=== PATIENT | male | born 1970 | race Caucasian/White ===

== ENCOUNTER 2020-01-17 21:54 | Emergency (ER) | payer OTHER ==
--- NOTE | 2020-01-17 22:38 | EDM.PDOC ---
ED HPI GENERAL MEDICAL PROBLEM - General Stated Complaint: PAINFUL URINATION Time Seen by Provider: 01/17/20 22:20 Source of Information: Reports: Patient History Limitations: Reports: No Limitations - History of Present Illness INITIAL COMMENTS - FREE TEXT/NARRATIVE: Patient presented to the ED because of inability to void and some dysuria. There is no flank pain.N/V or fever and chills. Lower Abdomen Pain Score (Numeric/FACES): 5 - Related Data Allergies Allergy/AdvReac Type Severity Reaction Status Date / Time No Known Allergies Allergy Verified 01/17/20 22:01 Home Meds: Home Meds Hydrochlorothiazide/Lisinopril [Lisinopril/HCTZ 20-12.5 MG] 20 mg PO DAILY 01/17/20 [History] Sulfamethoxazole/Trimethoprim [Bactrim Ds Tablet] 1 each PO BID #15 tablet 01/17/20 [Rx] Tamsulosin [Flomax] 0.4 mg PO DAILY 01/17/20 [History] metFORMIN [Glucophage] 500 mg PO DAILY 01/17/20 [History] tadalafiL [Tadalafil] 5 mg PO DAILY 01/17/20 [History] ED ROS GENERAL - Review of Systems Review Of Systems: See Below Constitutional: Reports: No Symptoms HEENT: Reports: No Symptoms Respiratory: Reports: No Symptoms Cardiovascular: Reports: No Symptoms Endocrine: Reports: High Glucose GI/Abdominal: Reports: No Symptoms : Reports: Dysuria, Urinary Retention. Denies: Flank Pain Musculoskeletal: Reports: No Symptoms Skin: Reports: No Symptoms Neurological: Reports: No Symptoms ED EXAM, RENAL/ - Physical Exam Exam: See Below Exam Limited By: No Limitations General Appearance: Alert, No Apparent Distress Ears: Normal External Exam, Normal Canal Nose: Normal Inspection, Normal Mucosa Throat/Mouth: Normal Inspection, Normal Lips, Normal Teeth Neck: Normal Inspection, Supple, Non-Tender Respiratory/Chest: No Respiratory Distress, Lungs Clear, Normal Breath Sounds Cardiovascular: Normal Peripheral Pulses, Regular Rate, Rhythm, No Edema GI/Abdominal: Normal Bowel Sounds, Soft, Non-Tender, No Organomegaly, Distended Course - Vital Signs Text/Narrative:: UA Rodriges insertion Bladder scan did reveal 9999 ml of post voidal urine Start on Bactrim DS Last Recorded V/S: Last Vital Signs Temp 37.7 C 01/17/20 22:18 Pulse 103 H 01/17/20 22:18 Resp 18 01/17/20 22:18 BP 156/91 H 01/17/20 22:18 Pulse Ox 96 01/17/20 22:18 - Orders/Labs/Meds Orders: Active Orders 24 hr Category Date Time Status Rodriges Catheter Insertion [Insert Urinary Catheter] [OM. Care 01/17/20 22:15 Ordered PC] Q24H Urinary Catheter Assessment [RC] [facility] Care 01/17/20 22:11 Active UA W/MICROSCOPIC [URIN] Stat Lab 01/17/20 22:22 Ordered Meds: Medications Discontinued Medications Generic Name Dose Route Start Last Admin Trade Name Freq PRN Reason Stop Dose Admin Trimethoprim/Sulfamethoxazole 1 tab 01/17/20 23:05 Septra Ds PO 01/17/20 23:06 NOW STA Departure - Departure Time of Disposition: 23:05 Disposition: Home, Self-Care 01 Condition: Good Clinical Impression: Urinary retention, UTI (urinary tract infection) - Discharge Information Prescriptions: Sulfamethoxazole/Trimethoprim [Bactrim Ds Tablet] 1 each PO BID #15 tablet Instructions: Urinary Tract Infection, Adult, Acute Urinary Retention, Male, [id number] Referrals: Balta Stern PA [Primary Care Provider] - Additional Instructions: Please read discharge instructions on urinary retention and UTI Increase oral fluids Bactrim DS 1 tablet twice daily for 7 days Continue Flomax once daily Follow up with your doctor this coming week. Sepsis Event Note (ED) - Focused Exam Vital Signs: Vital Signs Temp Pulse Resp BP Pulse Ox 01/17/20 22:18 37.7 C 103 H 18 156/91 H 96 - My Orders Last 24 Hours: My Active Orders 01/17/20 22:11 Urinary Catheter Assessment [RC] [facility] 01/17/20 22:15 Rodriges Catheter Insertion [Insert Urinary Catheter] [OM.PC] Q24H 01/17/20 22:22 UA W/MICROSCOPIC [URIN] Stat - Assessment/Plan Last 24 Hours: My Active Orders 01/17/20 22:11 Urinary Catheter Assessment [RC] [facility] 01/17/20 22:15 Rodriges Catheter Insertion [Insert Urinary Catheter] [OM.PC] Q24H 01/17/20 22:22 UA W/MICROSCOPIC [URIN] Stat
[2020-01-17] MEDS ORDERED: Sulfamethoxazole/Trimethoprim 800-160 MG Tab PO STA (23:05)
== END 2020-01-17 23:55 | disposition home or self-care (01) ==
LOC: FB.ED 21:54
DX: N39.0 Urinary tract infection, site not specified (principal); Z79.899 Other long term (current) drug therapy
CPT/HCPCS: 51798; 81001; 87086; 99284; A9270-GY

== ENCOUNTER 2020-01-31 10:13 | Emergency (ER) | payer OTHER ==
--- NOTE | 2020-01-31 11:44 | EDM.PDOC ---
ED HPI GENERAL MEDICAL PROBLEM - General Stated Complaint: CATHERDER PLUGGED Time Seen by Provider: 01/31/20 10:30 Source of Information: Reports: Patient History Limitations: Reports: No Limitations - History of Present Illness INITIAL COMMENTS - FREE TEXT/NARRATIVE: pt had Reed placed for urinary retention presents today as reed catheter is not draining and he had suprapubic discomfort No fever or chills , no flank pains noted Onset: Today Duration: Hour(s):, Getting Worse Location: Reports: Abdomen (suprpubic discomfort) Quality: Reports: Ache, Dull Severity: Moderate Worsens with: Reports: Movement Context: Reports: Activity Associated Symptoms: Reports: No Other Symptoms. Denies: Fever/Chills, Loss of Appetite, Malaise, Nausea/Vomiting - Related Data Allergies Allergy/AdvReac Type Severity Reaction Status Date / Time No Known Allergies Allergy Verified 01/17/20 22:01 Home Meds: Home Meds Hydrochlorothiazide/Lisinopril [Lisinopril/HCTZ 20-12.5 MG] 20 mg PO DAILY 01/17/20 [History] Sulfamethoxazole/Trimethoprim [Bactrim Ds Tablet] 1 each PO BID #15 tablet 01/17/20 [Rx] Tamsulosin [Flomax] 0.4 mg PO DAILY 01/17/20 [History] metFORMIN [Glucophage] 500 mg PO DAILY 01/17/20 [History] tadalafiL [Tadalafil] 5 mg PO DAILY 01/17/20 [History] Ciprofloxacin [Ciprofloxacin HCl] 500 mg PO BID #30 tab 01/31/20 [Rx] Past Medical History HEENT History: Reports: None Cardiovascular History: Reports: Hypertension Respiratory History: Reports: None Gastrointestinal History: Reports: None Genitourinary History: Reports: Retention, Urinary, UTI, Recurrent Musculoskeletal History: Reports: None Neurological History: Reports: None Psychiatric History: Reports: None Endocrine/Metabolic History: Reports: None Hematologic History: Reports: None Immunologic History: Reports: None Oncologic (Cancer) History: Reports: None Dermatologic History: Reports: None - Infectious Disease History Infectious Disease History: Reports: None - Past Surgical History Head Surgeries/Procedures: Reports: None Social & Family History - Tobacco Use Smoking Status *Q: Never Smoker ED ROS GENERAL - Review of Systems Review Of Systems: See Below Constitutional: Reports: No Symptoms. Denies: Fever, Malaise, Weakness HEENT: Reports: No Symptoms Respiratory: Reports: No Symptoms. Denies: Shortness of Breath, Cough Cardiovascular: Reports: No Symptoms. Denies: Chest Pain, Dyspnea on Exertion Endocrine: Reports: No Symptoms, High Glucose. Denies: Fatigue GI/Abdominal: Reports: Abdominal Pain. Denies: Distension, Vomiting : Reports: Urinary Retention. Denies: Dysuria, Flank Pain, Frequency, Pain Musculoskeletal: Reports: No Symptoms Skin: Reports: No Symptoms Neurological: Reports: No Symptoms Psychiatric: Reports: No Symptoms Hematologic/Lymphatic: Reports: No Symptoms ED EXAM, RENAL/ - Physical Exam Exam: See Below Exam Limited By: No Limitations General Appearance: Alert, WD/WN, No Apparent Distress Ears: Normal External Exam Nose: Normal Inspection Throat/Mouth: Normal Inspection, Normal Oropharynx Head: Atraumatic, Normocephalic Neck: Normal Inspection, Supple Respiratory/Chest: No Respiratory Distress, Lungs Clear Cardiovascular: Normal Peripheral Pulses GI/Abdominal: Soft, Distended, Tender (in robert suprapubic region ). No: Guarding, Rigid (Male) Exam: Suprapubic Fullness, Other (Reed catheter inplace , nithya blood noted , thick sediments noted in the catheter tubing). No: Scrotal Swelling, Scrotum Tenderness (L), Urethral Discharge Extremities: Normal Inspection Neurological: Alert, CN II-XII Intact Psychiatric: Normal Affect Course - Vital Signs Last Recorded V/S: Last Vital Signs Temp 36.4 C 01/31/20 10:55 Pulse 72 01/31/20 10:55 Resp 20 01/31/20 10:55 BP 173/86 H 01/31/20 10:55 Pulse Ox 94 L 01/31/20 10:55 - Orders/Labs/Meds Orders: Active Orders 24 hr Category Date Time Status CULTURE URINE [RM] Stat Lab 01/31/20 11:30 Received Labs: Laboratory Tests 01/31/20 Range/Units 11:30 Urine Color Yellow (YELLOW) Urine Appearance Cloudy (CLEAR) Urine pH 9.0 H (5.0-6.5) Ur Specific [place] 1.015 (1.010-1.025) Urine Protein 500 H (NEGATIVE) mg/dL Urine Glucose (UA) Normal (NORMAL) mg/dL Urine Ketones Negative (NEGATIVE) mg/dL Urine Occult Blood Large H (NEGATIVE) Urine Nitrite Negative (NEGATIVE) Urine Bilirubin Negative (NEGATIVE) Urine Urobilinogen Normal (NEGATIVE) mg/dL Ur Leukocyte Esterase Moderate H (NEGATIVE) Urine RBC >100 H (0-5) Urine WBC 10-20 H (0-5) Ur Squamous Epith Cells Rare (NS,R,O) Triple Phos Crystals Moderate H (NS) Urine Bacteria Many H (NS) Meds: Medications Discontinued Medications Generic Name Dose Route Start Last Admin Trade Name Sangita PRN Reason Stop Dose Admin Ceftriaxone Sodium 1 gm 01/31/20 11:49 01/31/20 11:52 Rocephin IM 01/31/20 11:50 1 gm ONETIME ONE Administration - Re-Assessments/Exams Free Text/Narrative Re-Assessment/Exam: 01/31/20 11:48 Bladder scan done : pt noted to have residual urine of 600cc, Catheter flushed and about 600cc of urine removed . Pt felt better . Urine sent to lab Free Text/Narrative Re-Assessment/Exam: 01/31/20 12:22 UA positive for UTI , pt given Rocephin injection and will complete course of ciprofloxacin orally Last urine culture result was non specific Departure - Departure Time of Disposition: 12:30 Disposition: Home, Self-Care 01 Condition: Good Clinical Impression: UTI, Urinary tract infectious disease, UTI (urinary tract infection), Urinary retention - Discharge Information *PRESCRIPTION DRUG MONITORING PROGRAM REVIEWED*: Not Applicable *COPY OF PRESCRIPTION DRUG MONITORING REPORT IN PATIENT CHARLIE: Not Applicable Prescriptions: Ciprofloxacin [Ciprofloxacin HCl] 500 mg PO BID #30 tab Instructions: Indwelling Urinary Catheter Care, Adult, Urinary Tract Infection, Adult Referrals: Balta Stern PA [Primary Care Provider] - Forms: ED Department Discharge Additional Instructions: 1) Increase fluid intake 2) Empty catheter at least 4-6 times daily to prevent blockage 3) make appointment to see your PCP or Urologist to determine date for removal of catheter 4) Call with any concerns Sepsis Event Note (ED) - Focused Exam Vital Signs: Vital Signs Temp Pulse Resp BP Pulse Ox 01/31/20 10:55 36.4 C 72 20 173/86 H 94 L - My Orders Last 24 Hours: My Active Orders 01/31/20 11:30 CULTURE URINE [RM] Stat - Assessment/Plan Last 24 Hours: My Active Orders 01/31/20 11:30 CULTURE URINE [RM] Stat
[2020-01-31] MEDS ORDERED: cefTRIAXone 1 GM Vial IM ONE (11:49)
== END 2020-01-31 12:56 | disposition home or self-care (01) ==
LOC: FB.ED 10:13
DX: R33.9 Retention of urine, unspecified (principal); N39.0 Urinary tract infection, site not specified; I10 Essential (primary) hypertension; Z79.899 Other long term (current) drug therapy
CPT/HCPCS: 51798; 81001; 87086; 96372; 99283; J0696